=== PATIENT | female | born 1980 | race Caucasian/White ===

== ENCOUNTER 2024-11-03 10:32 | Emergency (ER) | payer OTHER, SELFPAY ==
[2024-11-03] VITALS (7 sets, daily range): BP systolic 104–123; BP diastolic 71–90; PULSE 58–86; RESP 16–20; TEMP 36.6–36.8; O2SAT 99–100; BMI 29.2
--- NOTE | 2024-11-03 10:54 | EKG12_ITS ---
Test Reason : CP Blood Pressure : */* mmHG Vent. Rate : 69 BPM Atrial Rate : 69 BPM P-R Int : 126 ms QRS Dur : 82 ms QT Int : 408 ms P-R-T Axes : 55 71 62 degrees QTcB Int : 437 ms Normal sinus rhythm Normal ECG Confirmed by EM LEPE, ANGELA ([id number]), non linear editor JAYNE MILLS ([id number]) on 11/06/2024 10:01:20 AM Referred By: Confirmed By: ANGELA STRICKLAND MD
--- NOTE | 2024-11-03 11:04 | ED.VIS.CHEST ---
HPI History of Present Illness Chief Complaint: Chest Pain Informant: patient and spouse/S.O. Onset/Context/Timing Onset: Today and Hours Activity at onset: gradual Timing: Continuous Quality: Positive for Pain and Sharp Location: Substernal Current Severity: Moderate Maximum Severity: Moderate Worsened By: Nothing Relieved By: Nothing Associated Symptoms: Positive for Nausea Narrative Narrative: 44-year-old female states that she woke around 4 AM this morning with left lower posterior rib cage back pain then hours later developed in the midsternal chest pain. No prior history. No fall or trauma. No history of DVT or PE risk factors. No recent travel, surgery or immobilization. No calf pain or swelling. No hemoptysis. No cardiac history. No prior stress test or heart cath. No known family history of anybody with cardiac disease or clotting disorder below the age of 50. Patient denies recent exertional chest pain or exertional dyspnea. She does have a history of fibromyalgia. Nothing particular makes the pain better or worse. Prior Similar Symptoms: No Recent Illness/Hospitalization: No CVD Risk Factors: Positive for - (Fibromyalgia); Negative for Hypertension, Diabetes, Hypercholesterolemia, Family History 1' </=55 or Smoking PE Risk Factors: Negative for Recent Travel/Surgery, Recent Immobilization, Prior DVT or PE, Cancer or OCP + Smoking + >/=35 TAD Risk Factors: Negative for Marfan's Syndrome PFSH PFSH Medical History no medical history Home Medications ?Medication ?Instructions ?Recorded ?Last Taken ?Type NK 11/03/24 Unknown History Allergy/AdvReac Type Severity Reaction Status Date / Time Penicillins Allergy Vomiting Verified 11/03/24 10:35 Surgical History no surgical history Social History Smoking Status: Never smoker ROS ROS ED ROS Narrative Denies recent illness. Chest pain today. Constitutional Constitutional ED: Denies chills or fever(s) Eyes Eyes: Reports none ENT ENT ED: Denies ear pain Cardiovascular Cardiovascular: Reports as per HPI and chest pain; Denies palpitations or racing heartbeat Respiratory/Chest Respiratory/Chest: Reports dyspnea; Denies cough Gastrointestinal Gastrointestinal: Denies abdominal pain Genitourinary Genitourinary ED: Denies dysuria or hematuria Musculoskeletal Musculoskeletal: Reports back pain and other Details: Left posterior rib cage pain. ; Denies arthralgias Integumentary Denies abscess or Abrasions Neurologic Neurologic: Denies headache(s) Psychiatric Psychiatric: Denies anxiety Endocrine Endocrinology: Denies cold intolerance Hematologic/Lymphatic Hematologic/Lymphatic: Denies easy bleeding, easy bruising or lymphadenopathy Allergic/Immunologic Allergic/Immunologic ED: Denies mouth swelling, tongue swelling or urticaria EXAM Physical Exam Narrative Exam Narrative: 44-year-old female no acute distress vital signs stable afebrile. Pulse ox 100% on room air no signs hypoxia. Initial blood pressure 123/90. Sitting upright in bed. Significant other at bedside. H EENT exam pupils round reactive light. Moist membranes. No droop. Normal speech. Neck nontender. No JVD. No lymphadenopathy. Lungs clear to auscultation bilaterally. Heart regular rhythm rate about 70 no murmur. Chest wall and ribs no reproducible pain. No ecchymosis or bruising. No crepitance. Exam. Abdomen soft nontender normal bowel sounds without peritoneal signs. No reproducible pain. No pulsatile mass. No right upper quadrant pain. Back nontender. Appears normal. She describes a pain in her left posterior rib cage but there is no reproducible tenderness or signs of trauma. No rash. Neurologically she is awake alert no focal motor deficits. Moving all 4 extremities. Normal range of motion. Normal strength. 5 out of 5 sponge clipper strength. Equal symmetrical radial pulses. Calves nontender without edema or cords. No mottling. Normal dorsi plantarflexion. Neurologically she is awake alert. Answering questions following commands. Very benign exam. Const Vital Signs: 11/03/24 10:33 11/03/24 10:54 11/03/24 11:17 Temperature 98 F Temperature Source Oral Pulse Rate 86 Respiratory Rate 20 H Respiratory Effort Normal Blood Pressure 123/90 H Blood Pressure Mean 101 Pulse Ox 100 Oxygen Delivery Method Room Air Room Air 11/03/24 11:27 11/03/24 12:00 11/03/24 13:00 Temperature Temperature Source Pulse Rate 59 L 64 58 L Respiratory Rate 18 16 18 Respiratory Effort Blood Pressure 113/85 H 113/71 104/87 H Blood Pressure Mean 94 85 92 Pulse Ox 100 99 99 Oxygen Delivery Method Room Air Room Air 11/03/24 14:00 11/03/24 15:00 Temperature Temperature Source Pulse Rate 59 L 58 L Respiratory Rate 16 16 Respiratory Effort Blood Pressure 107/77 107/73 Blood Pressure Mean 87 84 Pulse Ox 99 99 Oxygen Delivery Method Room Air Positive well nourished and well developed; Negative for cachectic, contractures or unkempt General Appearance ED: well developed and NAD; Negative for unkempt, cachectic, contractures or pallor Nutritional Appearance: Negative for cachectic HEENT Reports moist mucous membranes normocephalic and atraumatic Eyes PERRL and EOMs intact bilaterally General Eye ED: Negative for pale conjunctiva or scleral icterus Neck no lymphadenopathy, supple and no JVD General: Negative for tenderness Chest Wall inspection of chest normal and palpation of chest normal Resp normal respiratory effort and clear to auscultation bilaterally Cardio regular rate, regular rhythm, S1 normal heart sound, S2 normal heart sound and no murmurs Peripheral Pulses: pulses 2+ throughout GI normal to inspection, nondistended, normoactive bowel sounds, soft to palpation, non-tender, non-distended and no masses Back/Spine no CVA tenderness and no thoracic nor lumbar tenderness Extremity normal to inspection General Extremety ED: Negative for edema, pulses abnormal or tenderness General Extremity: Negative for edema or pulses abnormal Neuro oriented x3, CN's II-XII intact bilaterally, No no sensory deficits noted and No gait normal Sensorium / Orientation: awake, alert, oriented to person, oriented to place and oriented to time; Negative for confused, lethargic or stuporous Motor Exam: strength 5/5 throughout Psych mental status grossly normal Appearance: Negative for unkempt Attitude: No agitated Mood & Affect: anxious; Negative for depressed or tearful Skin no rashes or lesions noted and no wounds General Skin Exam: Negative for jaundice or pallor Rashes: No rashes noted Trauma: Negative for abrasion or laceration Heart Score History: Slightly/Non-Suspicious ECG: Normal Age: </= 45 years Risk Factors: No Risk Factors Troponin: </= Normal Limit Score: 0 MDM MDM MDM Narrative Medical decision making narrative: 44-year-old female with atypical chest pain. No cardiac history. No recent exertional dyspnea or chest pain. Exam benign. Not reproducible. No history of DVT or PE. No family history. No risk factors. No calf tenderness or swelling. Patient will undergo a cardiac workup. She was offered something for pain but did not want a thing at this time. Repeat exam at 3:51 PM patient doing well. We discussed all of her test results. This was nonexertional. Is not reproducible. She has no risk factors for PE or DVT. Should be discharged to home chest pain uncertain etiology. Exam remains normal and benign. She is comfortable with the plan. History & Record Review Discussion w/independent historian: Patient and Significant other Additional record(s) reviewed:: Prior inpatient record, Prior outpatient record, Prior ED visit and Prior labs Lab Data Attestation: I reviewed the patient's lab results. Lab results narrative: CBC shows white count 13.7. H&H 12 and 36. Platelets 277. Electrolytes unremarkable. Gap 11. Normal BUN of 12 creatinine 0.68. Glucose 101. Initial troponin less than 6. 2-hour troponin is less than 6 also Chest x-ray unremarkable. EKG unremarkable. Labs: Laboratory Results - last 24 hr 11/03/24 11/03/24 11:15 14:00 WBC 13.7 H RBC 4.13 L Hgb 12.3 Hct 36.9 L MCV 89.3 MCH 29.8 MCHC 33.3 RDW Std Deviation 39.4 RDW Coeff of [place] 12.0 Plt Count 277 MPV 10.6 Immature Gran % (Auto) 0.400 Neut % (Auto) 78.9 H Lymph % (Auto) 14.6 L Morton % (Auto) 4.4 Eos % (Auto) 1.3 Baso % (Auto) 0.4 Absolute Neuts (auto) 10.8 H Absolute Lymphs (auto) 1.99 Nucleated RBC % 0 Sodium 136 Potassium 3.8 Chloride 103 Carbon Dioxide 22.2 Anion Gap 11 BUN 12 Creatinine 0.68 L Estim Creat Clear Calc 100.55 Est GFR (MDRD) Non-Af 111 BUN/Creatinine Ratio 17.4 Glucose 101 H Calcium 9.0 Troponin T High Sens < 6 Troponin T Hi Sens 2 Hr < 6 Radiography Chest X-Ray - ED: 2 View, Read by ED Physician, Read by Radiologist, Heart, Lungs, Mediastinum, Bony Structures, No Acute Disease and Chronic Changes Diagnostic Testing: Clinical Impression(s) from Imaging Studies Chest X-Ray 11/03/24 11:19 IMPRESSION: 1. No visible acute cardiopulmonary findings 2. Additional description as above. Reading Location: [facility] Chest x-ray, 2 views, AP and lateral, interpreted by by myself and radiology shows no acute abnormality. Normal cardiac silhouette. Normal lung woodson. No pneumothorax. No infiltrate. Rhythm Strip Rhythm Strip: Sinus Rhythm Rate: 6 Ectopy: None EKG Initial EKG: Attestation: I personally reviewed and interpreted this EKG as follows: Interpretation: Sinus Rhythm Comments: Normal sinus rhythm rate is 69. He has not signs of ND or ischemia. No dysrhythmia. Discharge Plan Triage Chief Complaint: Chest Pain ED Provider: Sravan Polanco Dx/Rx/DC Orders Clinical Impression: Chest pain Instructions: ED Chest Pain, Uncertain Cause Prescriptions: No Action NK Primary Care Provider: Donato Sutherland Referrals: Donato Sutherland MD [Primary Care Provider] - 3-5 Days if not improving Activity Restrictions/Additional Instructions: Motrin and Tylenol for any pain. Your chest x-ray, EKG and labs today are normal. Follow-up with your doctor if not improving. Return if worse. Print Language: Vietnamese Disposition Disposition: Home, Self Care
--- NOTE | 2024-11-03 11:19 | RAD_ITS ---
PROCEDURE: CHEST PA AND LATERAL (RADCXR), 11/03/2024 REASON FOR EXAM: CHEST PAIN TECHNIQUE: PA and lateral views of the chest were obtained. COMPARISON: None FINDINGS: Heart: Unremarkable. Mediastinum: Unremarkable. Lungs/pleura: No focal consolidation. No pleural effusion or visible pneumothorax. Bones: Mild spondylosis Lines and support devices: None. Other: None. RAD/Chest PA and Lateral IMPRESSION: 1. No visible acute cardiopulmonary findings 2. Additional description as above. Reading Location: [id number]
[2024-11-03 11:26] LABS: Absolute Lymphocyte Count 1.99 X10^3/uL (0.83-4.51); Absolute Neutrophil Count 10.8 X10^3/uL (2.0-7.7); Basophil# 0.05 X10^3/uL; Basophil% 0.4 % (0-1); Eosinophil# 0.18 X10^3/uL; Eosinophils% 1.3 % (0-5); Hematocrit 36.9 % (37-47); Hemoglobin 12.3 g/dL (12.0-15.0); Lymphocyte # 1.99 X10^3/ul (0.83-4.51); Lymphocyte % 14.6 % (19-41); Mean Corp Hgb Conc 33.3 g/dL (32-36); Mean Corpuscular Hgb 29.8 pg (27.0-32.0); Mean Corpuscular Volume 89.3 fL (81-99); Mean Platelet Vol. 10.6 fl (6.2-12.0); Monocyte% 4.4 % (0-10); NRBC Flagged by Analyzer 0 % (0-5); Neutrophil % 78.9 % (47-70); Platelet Count 277 K/mm3 (150-450); RBC Distribution Width SD 39.4 fl (35.1-43.9); Red Blood Count 4.13 M/mm3 (4.2-5.4); White Blood Count 13.7 K/mm3 (4.4-11.0)
[2024-11-03 11:52] LABS: Anion Gap 11 (5-15); BUN 12 mg/dL (4-19); BUN/Creat Ratio 17.4 RATIO (10-20); Carbon Dioxide 22.2 mmol/L (21.0-32.0); Chloride 103 mmol/L (98-108); Creatinine, Serum 0.68 mg/dL (0.70-1.20); EST Glomerular Filtration Rate 111 (>60); Estimated Creatinine Clearance 100.55 ml/min (50-250); Glucose 101 mg/dL (70-99); Potassium 3.8 mmol/L (3.3-5.1); Sodium Level 136 mmol/L (133-145); Troponin T High Sensitivity < 6 ng/L (<=14)
[2024-11-03] MEDS: Acetaminophen 500 MG Tablet 1000 MG PO (13:24)
[2024-11-03 15:42] LABS: Troponin T High Sens 2 HR < 6 ng/L (<=14)
== END 2024-11-03 15:59 | disposition home or self-care (01) ==
PROVIDERS: Emergency Provider Emergency Medicine; PCP Family Medicine; Visit Provider Emergency Medicine
DX: R07.9 Chest pain, unspecified (principal); R11.0 Nausea; R06.00 Dyspnea, unspecified
CPT/HCPCS: 71046; 80048; 84484; 85025; 93005; 99284; A4216